=== PATIENT | female | born 1990 | race Caucasian/White ===

== ENCOUNTER 2019-10-22 13:55 | Emergency (ER) | payer OTHER ==
--- OUTSIDE RECORDS SUMMARY | 2019-10-22 15:27 | XMS REPORT | Summary of Care ---
:1990 Author Organization [facility] Address [address] [place] [address] Care Team Providers Name Role Phone Kenya Harry Primary Care Provider Reason for Visit Reason Comments Physical pap, bump on the vaginal wall pr Encounter Details Date Type Department Care Team Description 08/29/2019 Office Visit [facility] Kamryn Well woman exam with Practice MD Kenya routine gynecological [address] exam (Primary Dx) [place] [address] [place] [address] [phone] Allergies Active Allergy Reactions Severity Noted Date Comments Ciprofloxacin Hcl Other, Hives High 05/22/2018 Chills documented as of this encounter (statuses as of 08/29/2019) Medications Medication Sig Dispensed Refills Start Date End Date Status ibuprofen (MOTRIN) Take 1 Tab by 120 Tab 0 06/28/2018 08/29/2019 Discontinued 600 MG Oral Tab mouth EVERY SIX HOURS NEEDED for Pain. documented as of this encounter (statuses as of 08/29/2019) Active Problems Problem Noted Date Grade III hemorrhoids 06/06/2018 documented as of this encounter (statuses as of 08/29/2019) Social History Tobacco Use Types Packs/Day Years Used Date Current Every Day Smoker Cigarettes 0.25 Smokeless Tobacco: Never Used Tobacco Cessation: Ready to Quit: No; Counseling Given: Yes Alcohol Use Drinks/Week oz/Week Comments Yes rare Sex Assigned at Date Recorded Not on file Job Start Date Occupation Industry Not on file Not on file Not on file Travel History Travel Start Travel End No recent travel history available. documented as of this encounter Last Filed Vital Signs Vital Sign Reading Time Taken Comments Blood Pressure 126/80 08/29/2019 2:47 PM EST Pulse 70 08/29/2019 2:47 PM EST Temperature 36.9 08/29/2019 2:47 PM EST C (98.5 F) Respiratory Rate - - Oxygen Saturation 98% 08/29/2019 2:47 PM EST Inhaled Oxygen Concentration - - Weight 58.6 kg (129 lb 1.6 oz) 08/29/2019 2:47 PM EST Height 175.3 cm (5' 9") 08/29/2019 2:47 PM EST Body Mass Index 19.06 08/29/2019 2:47 PM EST documented in this encounter Progress Notes Kenya Harry MD - 08/29/2019 2:40 PM EST Patient: Doris Salomon Date of Service: 08/29/2019 Subjective: Doris Salomon is a 28-y.o. female who presents for Chief Complaint Patient presents with Physical pap, bump on the vaginal wall pr Past Medical History: Diagnosis Date Hemorrhoid No current outpatient medications on file as of 08/29/2019. No current facility-administered medications on file as of 08/29/2019. Allergies Allergen Reactions Ciprofloxacin Hcl Other and Hives Chills Review of Systems: All remaining review of systems was negative. Objective: BP 126/80 (BP Location: Right arm, Patient Position: Sitting) Pulse 70 Temp 98.5 F (36.9 C) (Tympanic) Ht 5' 9" (1.753 m) Wt 129 lb 1.6 oz (58.6 kg) LMP 08/03/2019 SpO2 98% BMI 19.06 kg/m2 GENERAL: alert, no distress HEAD: normocephalic, without obvious abnormality EYES: conjunctivae/corneas clear. Pupils equal, round, reactive to light. Equal ocular movements intact. EARS: normal tympanic membranes and external ear canals, bilaterally NOSE: Nares normal. Septum midline. Mucosa normal. No drainage or sinus tenderness. THROAT: lips, mucosa, and tongue normal: teeth and gums normal NECK: supple, symmetrical, trachea midline, no adenopathy and thyroid: not enlarged, symmetric, notenderness/mass/nodules BACK: negative LUNGS: clear to auscultation bilaterally BREASTS: normal appearance, no masses or tenderness HEART: regular rate and rhythm, S1, S2 normal, no murmur, click, rub or gallop ABDOMEN: soft, non-tender. Bowel sounds normal. No masses, no organomegaly PELVIC: Pelvic exam: external genitalia normal, urethra without abnormality or discharge. Speculum exam: vagina normal without discharge, cervix - IUD string. PAP done Bimanual exam: uterus normal size, shape, and consistency, no adnexal masses or tenderness. EXTREMITIES: extremities normal, atraumatic, no cyanosis or edema PULSES: 2+ and symmetric SKIN: Skin color, texture, turgor normal. No rashes or suspicious lesions. LYMPH NODES: cervical, supraclavicular, and axillary nodes normal. NEUROLOGIC: Grossly normal ICD-9-CM ICD-10-CM 1. Well woman exam with routine gynecological exam V72.31 Z01.419 PAP SMEAR THINPREP W/ REFLEX HPV Follow up prn Author: Kenya Harry MD documented in this encounter Plan of Treatment Name Type Priority Associated Diagnoses Order Schedule PAP SMEAR THINPREP W/ Lab Routine Well woman exam with routine Ordered: 12/2018 REFLEX HPV gynecological exam Health Maintenance Due Date Last Done Comments PNEUMOCOCCAL 0-64 YRS (1 of - 1996 PPSV23) PAP SMEAR 11/12/2013 11/12/2010 INFLUENZA VACCINE (#1) 2019 Postponed from 05/27/2019 (Other) DEPRESSION SCREENING 06/18/2020 06/18/2019 HIV SCREENING Completed 06/18/2019 HPV IMMUNIZATION SERIES Aged Out No longer eligible based on patient's age to complete this topic MENINGOCOCCAL VACCINE IMM Aged Out No longer eligible based on patient's age to complete this topic documented as of this encounter Results Not on filedocumented in this encounter Visit Diagnoses Diagnosis Well woman exam with routine gynecological exam - Primary Routine gynecological examination documented in this encounter documented as of this encounter
--- OUTSIDE RECORDS SUMMARY | 2019-10-22 15:27 | XMS REPORT | Summary of Care ---
:1990 Author Organization [facility] Address [address] [address] Care Team Providers Name Role Phone Kamryn Kenya Primary Care Provider Reason for Visit Reason Comments Coccyx Pain Encounter Details Date Type Department Care Team Description 10/12/2019 Office Visit [facility] Anamaria Sommer, Coccyx pain ( Primary Dx); Practice SOFTWARE PROGRAMMER Sacral pain [address] [place] [address] [place] [address] [phone] Allergies Active Allergy Reactions Severity Noted Date Comments Ciprofloxacin Hcl Other, Hives High 05/22/2018 Chills documented as of this encounter (statuses as of 10/12/2019) Medications Medication Sig Dispensed Refills Start Date End Date Status ibuprofen (IBU-200) 200 Take 200 mg by 0 Active MG Oral Tab mouth THREE TIMES DAILY. gabapentin (NEURONTIN) Take 1 Cap by 30 Cap 0 10/12/2019 Active 100 MG Oral mouth EVERY CapIndications: Sacral BEDTIME. pain documented as of this encounter (statuses as of 10/12/2019) Active Problems Problem Noted Date Grade III hemorrhoids 06/06/2018 documented as of this encounter (statuses as of 10/12/2019) Social History Tobacco Use Types Packs/Day Years [...] Sign Reading Time Taken Comments Blood Pressure 118/64 10/12/2019 2:08 PM EST Pulse 66 10/12/2019 2:08 PM EST Temperature - - Respiratory Rate - - Oxygen Saturation 99% 10/12/2019 2:08 PM EST Inhaled Oxygen Concentration - - Weight 58.5 kg (129 lb) 10/12/2019 2:08 PM EST Height - - Body Mass Index 19.05 08/29/2019 2:47 PM EST documented in this encounter Patient Instructions Patient InstructionsAnamaria Sommer FNP - 10/12/2019 2:00 PM ESTIce as needed Trial Gabapentin 100 mg at bedtime Call if pain persistsElectronically signed by Anamaria Sommer FNP at 2019 2:20 PM EST documented in this encounter Progress Notes Anamaria Sommer FNP - 10/12/2019 2:00 PM EST PATIENT: Doris Salomon : 1990 DATE OF SERVICE: 10/12/2019 CHIEF COMPLAINT: Chief Complaint Patient presents with Coccyx Pain Subjective HISTORY OF PRESENT ILLNESS: Doris Salomon is a 28-y.o. female. HPI Ongoing coccyx pain - x 6 months - pain comes and goes. No injury. Saw PCP - xray done - normal. Worse with sitting for long periods. Ibuprofen not helpful. Tried donut pillow - didn't help Past Medical History: Diagnosis Date Hemorrhoid Family History Problem Relation Age of Onset GI Mother No Known Problems Father No Known Problems Brother No Known Problems Daughter No Known Problems Son No Known Problems Brother No Known Problems Brother Hearing Loss Brother No Known Problems Daughter No Known Problems Daughter Breast Cancer Paternal Grandmother Cancer Paternal Grandmother breast Current Outpatient Medications Medication Sig gabapentin (NEURONTIN) 100 MG Oral Cap Take 1 Cap by mouth EVERY BEDTIME. ibuprofen (IBU-200) 200 MG Oral Tab Take 200 mg by mouth THREE TIMES DAILY. No current facility-administered medications for this visit. Allergies Allergen Reactions Ciprofloxacin Hcl Other and Hives Chills Social History Socioeconomic History Marital status: Spouse name: Not on file Number of children: Not on file Years of education: Not on file Highest education level: Not on file Occupational History Not on file Social Needs Financial resource strain: Not on file Food insecurity Worry: Not on file Inability: Not on file Transportation needs Medical: Not on file Non-medical: Not on file Tobacco Use Smoking status: Current Every Day Smoker Packs/day: 0.25 Types: Cigarettes Smokeless tobacco: Never Used Substance and Sexual Activity Alcohol use: Yes Comment: rare Drug use: No Sexual activity: Yes Partners: Male control/protection: I.U.D. Lifestyle Physical activity Days per week: Not on file Minutes per session: Not on file Stress: Not on file Relationships Social connections Talks on phone: Not on file Gets together: Not on file Attends muslim service: Not on file Active member of club or organization: Not on file Attends meetings of clubs or organizations: Not on file Relationship status: Not on file Intimate partner violence Fear of current or ex partner: Not on file Emotionally abused: Not on file Physically abused: Not on file Forced sexual activity: Not on file Other Topics Concern Back Care Not Asked Bike Helmet Not Asked Blood Transfusions Not Asked Caffeine Concern Not Asked Exercise Not Asked Hobby Hazards Not Asked International Travel No Service Not Asked Occupational Exposure Not Asked Seat Belt Yes Self-Exams Not Asked Sleep Concern Not Asked Special Diet Not Asked Stress Concern Not Asked Weight Concern Not Asked Social History Narrative Not on file REVIEW OF SYSTEMS: Review of Systems Gastrointestinal: No Bowel changes Genitourinary: No bladder changes Musculoskeletal: Positive for myalgias. Objective PHYSICAL EXAM: VITALS: BP 118/64 | Pulse 66 | Wt 129 lb (58.5 kg) | SpO2 99% | BMI 19.05 kg/m Body mass index is 19.05 kg/m. Physical Exam Vitals signs and nursing note reviewed. Constitutional: General: She is not in acute distress. Appearance: Normal appearance. She is not ill-appearing. HENT: Head: Normocephalic and atraumatic. Musculoskeletal: Back: Skin: General: Skin is warm and dry. Capillary Refill: Capillary refill takes less than 2 seconds. Findings: No bruising, erythema or rash. Neurological: Mental Status: She is alert and oriented to person, place, and time. Psychiatric: Mood and Affect: Mood normal. Behavior: Behavior normal. Behavior is cooperative. ASSESSMENT / IMPRESSION: ICD-9-CM ICD-10-CM 1. Coccyx pain 724.79 M53.3 2. Sacral pain 724.6 M53.3 gabapentin (NEURONTIN) 100 MG Oral Cap Plan Ice as needed Trial Gabapentin 100 mg at bedtime Call if pain persists Author: ANUSHKA Bueno 10/12/2019 14:24 documented in this encounter Plan of Treatment Health Maintenance Due Date Last Done Comments PNEUMOCOCCAL 0-64 YRS (1 of 1 1996 - PPSV23) DTaP/Tdap/Td Vaccines ( - 2001 Tdap) INFLUENZA VACCINE (#1) 2019 Postponed from 05/27/2019 (Other) DEPRESSION SCREENING 06/18/2020 06/18/2019 PAP SMEAR 08/29/2022 08/29/2019, 11/12/2010 HIV SCREENING Completed 06/18/2019 HEPATITIS A IMMUNIZATION Aged Out No longer eligible based SERIES on patient's age to complete this topic HPV IMMUNIZATION SERIES Aged Out No longer eligible based on patient's age to complete this topic MENINGOCOCCAL VACCINE IMM Aged Out No longer eligible based on patient's age to complete this topic documented as of this encounter Results Not on filedocumented in this encounter Visit Diagnoses Diagnosis Coccyx pain Other disorder of coccyx Sacral pain Disorders of sacrum documented in this encounter documented as of this encounter"
--- OUTSIDE RECORDS SUMMARY | 2019-10-22 15:27 | XMS REPORT | Summary of Care ---
:1990 Author Organization [facility] Address [address] [place] [address] Care Team Providers Name Role Phone Kenya Harry Primary Care Provider Reason for Referral Medication Prior Authorization (Routine) Status Reason Specialty Diagnoses / Procedures Referred By Contact Referred To Contact Denied Kenya Harry MD [address] [place] [address] MRI/CAT/PET Scan (Routine) Status Reason Specialty Diagnoses / Referred By Referred To Procedures Contact Contact Pending Review Diagnoses Pain in pelvis Kamryn, Procedures MR PELVIS WO CONTRAST MD Kenya [address] [place] [address] Reason for Visit Reason Comments Tailbone Pain Follow up still having pain. Gabapentin and cyclobenzaprine only dulls pain. Leg Pain Right thigh has burning pain. Encounter Details Date Type Department Care Team Description 10/19/2019 Office Visit [facility] Kamryn, Pain in pelvis Practice MD Kenya (Primary Dx) [address] [place] [address] [place] [address] [phone] Allergies Active Allergy Reactions Severity Noted Date Comments Ciprofloxacin Hcl Other, Hives High 05/22/2018 Chills documented as of this encounter (statuses as of 10/19/2019) Medications Medication Sig Dispensed Refills Start Date End Date Status gabapentin Take 1 Cap 30 Cap 0 10/12/2019 Active (NEURONTIN) 100 MG by mouth Oral CapIndications: EVERY Sacral pain BEDTIME. cyclobenzaprine Take 1 Tab 30 Tab 0 10/15/2019 Active (FLEXERIL) 10 MG by mouth Oral Tab THREE TIMES DAILY NEEDED (pain/spasm ). celeCOXIB (CELEBREX) Take 1 Cap 60 Cap 0 10/19/2019 Active 200 MG Oral Cap by mouth TWO TIMES DAILY NEEDED (pain). ibuprofen (IBU-200) Take 200 mg 0 Discontinued 200 MG Oral Tab by mouth 0 (Other) THREE TIMES DAILY. documented as of this encounter (statuses as of 10/19/2019) Active Problems Problem Noted Date Grade III hemorrhoids 06/06/2018 documented as of this encounter (statuses as of 10/19/2019) Social History Tobacco Use Types Packs/Day Years Used Date Current Every Day Smoker Cigarettes 0.25 Smokeless Tobacco: Never Used Alcohol Use Drinks/Week oz/Week Comments Yes rare Sex Assigned at Date Recorded Not on file Job Start Date Occupation Industry Not on file Not on file Not on file Travel History Travel Start Travel End No recent travel history available. documented as of this encounter Last Filed Vital Signs Vital Sign Reading Time Taken Comments Blood Pressure 122/68 10/19/2019 2:31 PM EST Pulse 132 10/19/2019 2:31 PM EST Temperature - - Respiratory Rate - - Oxygen Saturation 99% 10/19/2019 2:31 PM EST Inhaled Oxygen Concentration - - Weight 57.2 kg (126 lb) 10/19/2019 2:31 PM EST Height 167.6 cm (5' 6") 10/19/2019 2:31 PM EST Body Mass Index 20.34 10/19/2019 2:31 PM EST documented in this encounter Patient Instructions Patient InstructionsKenya Harry MD - 10/19/2019 2:20 PM EST1. Schedule MRI 2. Take Celebrex 200 mg 2 times a day as needed for pain 3. Follow up after the tests and as needed documented in this encounter Progress Notes Kenya Harry MD - 10/19/2019 2:20 PM EST Patient: Doris Salomon Date of Service: 10/19/2019 Subjective: Doris Salomon is a 28-y.o. female who presents for Chief Complaint Patient presents with Tailbone Pain Follow up still having pain. Gabapentin and cyclobenzaprine only dulls pain. Leg Pain Right thigh has burning pain. Patient comes follow up pain in the coccyx area. Seen for this problem in 05/2019 Continues to have the pain. Now also has pain in the R lower back ad R lateral pain. No improvement with Neurontin, Flexeril. Past Medical History: Diagnosis Date Hemorrhoid Outpatient Medications as of 10/19/2019 Medication Sig Dispense Refill cyclobenzaprine (FLEXERIL) 10 MG Oral Tab Take 1 Tab by mouth THREE TIMES DAILY NEEDED (pain/spasm). 30 Tab 0 gabapentin (NEURONTIN) 100 MG Oral Cap Take 1 Cap by mouth EVERY BEDTIME. 30 Cap 0 No current facility-administered medications on file as of 10/19/2019. Allergies Allergen Reactions Ciprofloxacin Hcl Other and Hives Chills Review of Systems: All remaining review of systems was negative. Objective: BP 122/68 Pulse 132 Ht 5' 6" (1.676 m) Wt 126 lb (57.2 kg) SpO2 99% BMI 20.34 kg/m2 General appearance: alert, well appearing, and in no distress. Back exam: tenderness in the R SI joint and coccyx area, positive straight-leg raise on the R at 100 degrees. A right hip exam was performed. TENDERNESS: mild and maximal at greater trochanter ROM: full, discomfort with flexion and abduction NEUROLOGICAL EXAM: normal VASCULAR EXAM: normal ICD-9-CM ICD-10-CM 1. Pain in pelvis [id number] R10.2 MR PELVIS WO CONTRAST Patient Instructions 1. Schedule MRI 2. Take Celebrex 200 mg 2 times a day as needed for pain 3. Follow up after the tests and as needed Author: Kenya Harry MD documented in this encounter Plan of Treatment Name Type Priority Associated Diagnoses Order Schedule MR PELVIS WO CONTRAST Imaging Routine Pain in pelvis Expected: 10/19/2019, Expires: 10/18/2020 Health Maintenance Due Date Last Done Comments PNEUMOCOCCAL 0-64 YRS (1 of 1 1996 - PPSV23) DTaP/Tdap/Td Vaccines (1 - 2001 Tdap) INFLUENZA VACCINE (#1) 2019 [...] filedocumented in this encounter Visit Diagnoses Diagnosis Pain in pelvis documented in this encounter documented as of this encounter
[2019-10-22 15:52] VITALS: BP 116/71
== END 2019-10-22 18:01 | disposition left against medical advice (07) ==
LOC: ED 13:55
DX: Z53.21 Procedure and treatment not carried out due to patient leaving prior to being seen by health care provider (principal); M53.3 Sacrococcygeal disorders, not elsewhere classified
CPT/HCPCS: 99282